=== PATIENT | male | born 1975 | race Caucasian/White ===

== ENCOUNTER 2017-09-15 15:04 | Inpatient (IN) ==
[2017-09-15] MEDS ORDERED: ONDANSETRON 4 MG/2 ML INJECTION IVP PRN (15:11)
[2017-09-15] MEDS ORDERED: VANCOMYCIN - PHARMACY CONSULT MC ONE (15:11)
[2017-09-15] MEDS ORDERED: POLYETHYL GLYCOL 3350 17gm PACKET PO PRN (15:12)
[2017-09-15] MEDS ORDERED: ACETAMINOPHEN 325 MG TABLET PO PRN (15:12)
[2017-09-15] MEDS ORDERED: BISACODYL 10 MG SUPPOSITORY RECTALLY PRN (15:12)
[2017-09-15 16:24] VITALS: BMI 29.5
[2017-09-15] MEDS: NS 1,000 ML IV SCH (16:30)
--- NOTE | 2017-09-15 17:27 | Pharmacy Consult-Antibiotics ---
Pharmacy Consult-Vancomycin - Consult Information Vancomycin consult noted by Dr Hurley. Mr Aragon is a 41yo man, 109.8kg, will cellulitis and abscess. Will give a vancomycin 2000mg loading dose followed by 1500mg vancomycin q8h. Will continue to monitor and adjust doses accordingly. Thank you.
[2017-09-15] MEDS ORDERED: GLUCOSE ORAL GEL 40% 37.5gm PO PRN (17:45)
--- NOTE | 2017-09-15 18:33 | History & Physical Report ---
History of Present Illness Date: 09/15/17 Chief complaint: left foot abscess, diabetic ulceration HPI: Mundo Aragon is a pleasant 41-year-old male patient of Dr. Radha Avila. He reports that in February 2017 he developed an ulcer to his left foot along the 1st metatarsal which progressed into osteomyelitis. He was treated with a 3- month course of vancomycin which was completed at the end of May. Throughout his treatment course, he has been following with Cuca Galdamez APRN, as an outpatient for wound care including weekly dressing changes and wound debridement. On 09/10/17, he was seen in clinic for his weekly dressing change and complained of increasing pain along his left great toe extending into his left foot with swelling and erythema. He reports that the pain and swelling came on suddenly on 09/09/17. He also reported increased fatigue and feeling "sluggish". Evaluation of his ulceration revealed copious serous drainage with a foul odor. He has a known history of diabetes mellitus as well as diabetic peripheral neuropathy. Labs were obtained at that time and revealed elevated lactic acid of 3.7 with elevated sed rate of 48 and glucose of 311. WBC was normal at 9.0. Due to his left foot cellulitis and foot ulceration with uncontrolled diabetes, he was admitted to [facility] in [place]. Daptomycin IV was initiated at the time of admission. Throughout his admission , blood counts remained stable. On 09/14, he was noted to have some hyponatremia (Na 132) and persistently had hyperglycemia with glucose averaging 200. Given his hyperglycemia, he was continued on his home glimepiride 2mg orally BID and metformin 1000mg orally BID with the initiation of Lantus 14 units at night with noted improvement in blood sugars. Initial CRP was elevated at 32 and trended down to 25. Lactate improved from 3.7 on admission to 1.6. Wound cultures from the ulcer were obtained and revealed moderate amount of staph aureus sensitive to daptomycin and large amount of streptococcus agalactiae. Sensitivities revealed resistance to tetracyclines, clindamycin and ciprofloxacin. With the initiation of the daptomycin, he reports increased nausea with frequent vomiting and watery diarrhea. He continues to complain of nausea with occasional vomiting and anorexia. Due to continued pain with minimal clinical improvement, MRI fo the foot was obtained today, 09/15/17, and findings were concerning for persistent cellulitis/myositis as well as developing abscess along the lateral 1st metatarsal-phalangeal region extending along the proximal 1st phalanx. No evidence of osteomyelitis was noted. Due to the development of the abscess, Dr. Hurley was contacted and he was accepted to [facility] for inpatient care for further evaluation, continued IV antibiotic treatment and surgical consultation with ortho for evaluation with anticipated I&D. His length of stay is expected to exceed more than 2 over nights. On exam, he is seen while resting in bed, with his family at the bedside. Extensive review of his prior medical records, labs and imaging in addition to discussion of his care plan with ortho was completed. He is noted to be febrile (T 100.4) and tachycardic (HR 104) on admission. He complains of nausea and overall, not feeling well. He reports that he occasionally checks his blood sugars and they typically run around 300 at home. He is open to learning how to better control his diabetes and receiving more diabetic education. Review of Systems All systems PM: 10-point ROS was reviewed, no additional remarkable complaints except - Constitutional Constitutional: Present: anorexia, chills, fatigue, fever(s), lethargy, malaise , weakness - EENMT Eyes: Absent: change in vision, loss of vision Ears: Absent: ear pain Balance: Absent: falling to one side Nose: Absent: nosebleeds Mouth/Throat: Present: dry mouth. Absent: sore throat, changes in swallowing - Cardiovascular Cardiovascular: Absent: chest pain, palpitations, syncope, dyspnea on exertion, orthopnea Rhythm: Present: regular rhythm Vascular: Absent: pallor of an extermity, pedal edema - Respiratory Respiratory: Absent: cough, dyspnea, hemoptysis, dyspnea on exertion, wheezing - Gastrointestinal Gastrointestinal: Present: change in bowel habits, diarrhea, nausea, vomiting. Absent: abdominal pain, hematemesis, hematochezia, melena - Genitourinary Genitourinary: Absent: dysuria, flank pain, hematuria - Musculoskeletal Musculoskeletal: Present: back pain (chronic), muscle weakness, myalgias. Absent: deformity - Integumentary/Breasts Integumentary: Present: as per HPI. Absent: rash - Neurological Neurological: Present: weakness. Absent: dizziness, focal weakness - Psychiatric Psychiatric: Absent: anxiety, depression - Endocrine Endocrine: Present: flushing. Absent: heat intolerance, palpitations - Hematologic/Lymphatic Hematologic/Lymphatic: Absent: easy bruising - Allergic/Immunologic Allergic/Immunologic: Absent: seasonal rhinorrhea Past Medical History Medical History Updates: Diabetes mellitus, type II - uncontrolled. Diabetic neuropathy. History of left foot osteomyelitis - 02/2017. Surgical History: Tonsillectomy. Adenoidectomy. Family History: Mother - , 62, lung cancer. Father - , 40s, CAD, hypertension, [place]. Patient admits to a strong family history of CAD, diabetes, hypertension, hereditary spherocytosis, thyroid disorders and cancers. 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 Radha Avila. Wound Care - Cuca Galdamez APRN. Medications Home Medications Medication Instructions Recorded Confirmed Type Gabapentin [Neurontin] 600 mg PO BID 09/15/17 09/15/17 History Glimepiride [Amaryl] 2 mg PO BID 09/15/17 09/15/17 History Metformin [Glucophage] 1 tab PO BIDWM 09/15/17 09/15/17 History Allergies Allergy/AdvReac Type Severity Reaction Status Date / Time No Known Allergies Allergy Verified 09/15/17 16:36 Exam Vital Signs: Temperature 100.4 F 09/15/17 16:31 Pulse Rate 102 H 09/15/17 17:54 Respiratory Rate 18 09/15/17 16:31 Blood Pressure 161/95 H 09/15/17 16:31 Pulse Oximetry 95 09/15/17 16:31 Height/Weight/BMI: Height 6 ft 4 in Weight 242 lb 1.081 oz Body Mass Index 29.5 Comments: Resting in bed with family at bedside. Face flushed and febrile. - Constitutional Present: no acute distress, well nourished, well developed, cooperative - Routine HEENT Exam Head: Present: normocephalic, atraumatic Eye: Present: PERRL. Absent: conjunctival icterus ENT: Present: mucous membranes dry, oropharynx clear, dentition normal - Routine Neck Exam Present: supple, full ROM, trachea midline - Routine Chest/Breast/Axilla Exam Chest wall: Absent: tenderness, pacemaker - Routine Respiratory Exam Present: CTA bilaterally. Absent: respiratory distress, wheezes - Routine Cardiovascular Exam Present: S1, S2, no murmur, tachycardia - Routine Abdominal Exam Present: soft, normoactive bowel sounds, non distended, non tender - Routine Extremities Exam Present: no edema, full ROM, pulses intact Comments: Bandage to left foot that is clean, dry and intact - not removed on exam. - Routine Back/Spine/Pelvis Exam Back/Spine: Present: full ROM. Absent: vertebral tenderness - Routine Skin Exam Present: dry, warm Comments: Febrile. - Routine Neurological Exam Present: alert, oriented X3, CN II-XII intact, moving all extremities, hearing grossly intact, normal speech - Routine Psychiatric Exam Present: normal affect, cooperative Results - Labs CBC & Chem 7: 09/15/17 15:10 09/15/17 17:20 Labs: Labs from [facility] on 09/14/17: WBC 8.0 Hgb 16.4 Na 132 K 4.5 BUN 39 SCr 0.8 Glu 203 Wound Culture from [facility]: Staphylococcus aureus - moderate amount SENSITIVE to DAPTOMYCIN Streptococcus agalactiae - large amount Sensitivities: Ceftriaxone S Ciprofloxacin I Clindamycin R Erythromycin R Gentamicin S Levofloxacin S Linezolid S Oxacillin S Penicillin S Rifampin S Tetracycline R Trimethoprim/Sulfa S Vancomycin S Microbiology Results: Microbiology 09/15/17 17:20 Peripheral/Iv Start Blood Culture - Preliminary Culture Initiated - Results Pending 09/15/17 17:20 Peripheral/Iv Start Blood Culture - Preliminary Culture Initiated - Results Pending - Impressions MRI Left Foot - 09/15/17: 1. There is subcutaneous edema both dorsally as well as around the region of the 1st metatarsal-phalangeal joint extending into the great toe and more proximal portions of the region of the 1st metatarsal though within the subcutaneous tissues. There is also some edema of the underlying musculature. There also appears to be a soft tissue defect along the plantar aspect of the medial portion of the 1st proximal phalanx. Packing material appears present. There is enhancement throughout these areas. Findings are most consistent with cellulitis/myositis. 2. There is a focus of fluid seen within the soft tissues lateral to the 1st metatarsal-phalangeal region extending along the proximal 1st phalanx, as above. There is some partial surrounding enhancement and this may represent developing abscess. This measures approximately 2.0x1.8x0.9 cm. This is along the lateral aspect of the 1st metatarsal-phalangeal joint and proximal phalanx. 3. Minimal fluid within the tendon sheath of the flexor hallucis longus distally. Tendons throughout appear within normal limits. There is also some minimal fluid at the 1st and 2nd metatarsophalangeal joints. 4. There does not appear to be significant bone marrow edema or abnormal enhancement of the bone throughout. No evidence to suggest osteomyelitis seen. Left Foot X-Ray - 09/10/17: Normal left foot. Assessment and Plan Assessment and Plan: Assessment Left foot abscess, acute Diabetic foot ulceration with cellulitis, acute Uncontrolled diabetes mellitus Diabetic peripheral neuropathy N/V History of osteomyelitis to left foot - 02/2017 Plan Patient admitted to inpatient status under the care of Dr. Hurley. Patient was hospitalized at [facility] in [place], [place] from 09/10/17-, prior to being transferred to [facility]. MRI on 09/15/17 concerning for abscess to left foot without evidence of osteomyelitis. Treatment with Daptomycin IV from 09/10/17-09/15/17 without improvement. Ortho consulted. Dr. Estes plans to take patient to the OR tomorrow, 09/16/17 for I&D of the abscess. Patient to be NPO after midnight. Monitor closely on telemetry. Prior wound cultures revealed sensitivity to vancomycin. Initiate vancomycin for empiric antimicrobial coverage while awaiting cultures from I&D. Pharmacy to manage. Will consult Dr. Saini (infectious disease) for treatment recommendations and durations. Wound care per Dr. Estes and team. Uncontrolled hyperglycemia with known diabetes. Will continue home metformin and glimepiride. While at [facility], he was started on Levemir 14 units QHS. Sliding scale insulin as indicated. Monitor blood sugars closely. Will hold on Levemir at this time given NPO status. Zofran for nausea/vomiting. Morphine PRN pain. Patient reports frequent diarrhea stools since starting antibiotics. Will obtain stool culture. Initiate probiotics with antibiotics. Hydration with NS 125cc/hr. Recheck labs in AM to monitor blood counts, electrolytes and renal function. Upon discharge, patient's care will be returned to his PCP, Dr. Avila. Prior to discharge, patient is open to additional counseling and education regarding his diabetes and how to achieve better control. Patient requests to be a FULL CODE. DVT Prophylaxis: SCD's GI Prophylaxis: Protonix Resuscitation Status: Full Code - Time spent with patient Time with patient PN: 70 minutes - Physician Narrative Physician: Nelson Hurley MD Narrative: Date: 09/15/17 Time: 2005 Have independently interviewed and examined pt. Chart reviewed. Case discussed with my PA. Care plan developed with my supervision; agree with above. Admitted to [facility] secondary to finding of abscess to foot - being treated for cellulitis of same foot. Increasing temp and HR. Increasing pain. Oral drive decreased-nauseated easily. Notes decrease urine output. Breathing well other than slight cough. No chest pain or pressure. Lungs: clear CV: regular AB; soft nt/nd MSE: awake alert appropriate Plan: Inpatient admission to [facility] for treatment of abscess to foot. Anticipate greater than 2 midnights of care needed. Will consult with Dr Estes for wound debridement and abscess drainage. Antibiotics for coverage. Lab was surprisingly benign for as ill patient sounded from outlying provider-still he is clearly quite ill and needs intensive Wound care and antibiotics to ensure favorable outcome. Hospital Course Summary Disclaimer: The visit summary below is not to be considered part of the above Progress Note. Hospital Course: 09/15/17 Patient admitted to inpatient status under the care of Dr. Hurley. Patient was hospitalized at [facility] in [place], [place] from 09/10/17-, prior to being transferred to [facility]. MRI on 09/15/17 concerning for abscess to left foot without evidence of osteomyelitis. Treatment with Daptomycin IV from 09/10/17-09/15/17 without improvement. Ortho consulted. Dr. Estes plans to take patient to the OR tomorrow, 09/16/17 for I&D of the abscess. Patient to be NPO after midnight. Monitor closely on telemetry. Prior wound cultures revealed sensitivity to vancomycin. Initiate vancomycin for empiric antimicrobial coverage while awaiting cultures from I&D. Pharmacy to manage. Will consult Dr. Saini (infectious disease) for treatment recommendations and durations. Wound care per Dr. Estes and team. Uncontrolled hyperglycemia with known diabetes. Will continue home metformin and glimepiride. While at [facility], he was started on Levemir 14 units QHS. Sliding scale insulin as indicated. Monitor blood sugars closely. Will hold on Levemir at this time given NPO status. Zofran for nausea/vomiting. Morphine PRN pain. Patient reports frequent diarrhea stools since starting antibiotics. Will obtain stool culture. Initiate probiotics with antibiotics. Hydration with NS 125cc/hr. Recheck labs in AM to monitor blood counts, electrolytes and renal function. Upon discharge, patient's care will be returned to his PCP, Dr. Avila. Prior to discharge, patient is open to additional counseling and education regarding his diabetes and how to achieve better control. Patient requests to be a FULL CODE.
[2017-09-15] MEDS ORDERED: PANTOPRAZOLE 40 MG INJECTION IVP ONE (19:12)
--- NOTE | 2017-09-15 20:38 | Orthopedic Consult Note ---
Orthopedic Consultation HPI - Consultation Info Consult Date: 09/15/17 Attending Physician: Nelson Hurley MD Consult Reason: other (left foot diabetic ulcer) - History of Present Illness Patient reports difficult to heal left diabetic foot ulcer that has been present for the past 7 months. Approximately four months ago he reports developing osteomyelitis in his left great toe, he underwent 3 months of antibiotics and states his ulcer was nearly healed a month ago. Over the last two weeks it started worsening again. He was at [facility] wound clinic on for follow up debridement and dressing changes when he was noted to have increased drainage and foul odor from wound. Wound cultures were obtained revealed staph aureus and streptococcus agalactiae. With sensitivity to Daptomycin. On Thursday (09/11), patient developed nausea, vomiting, and diarrhea. Progressing into fevers, chills, body aches today. He was febrile and tachycardic on admission to [facility]. MRI was obtained of his left foot today which showed concerns for developing abscess of left lateral 1st phalanx, and cellulitis. No evidence of osteomyelitis. WBC remained stable throughout stay. Today WBC 10.7. Dr. Hurley was notified and patient was admitted inpatient. Patient does have Diabetes mellitus and peripheral neuropathy. He is on Metformin and glimepride. He was started on Lantus as well at [facility] due to hyperglycemia. Ortho consulted for evaluation of diabetic foot ulcer. Review of Systems - Constitutional Constitutional: Present: anorexia, chills, fatigue, fever(s), malaise, dizziness - Cardiovascular Cardiovascular: Absent: chest pain, palpitations - Respiratory Respiratory: Absent: cough, wheezing - Gastrointestinal Gastrointestinal: Present: diarrhea, nausea, vomiting - Musculoskeletal Musculoskeletal: Present: as per HPI - Neurological Neurological: Absent: numbness, tingling [facility] Patient Stated Medical History Peripheral Neuropathy Yes Diabetes Mellitus Type 2 Yes Gastroesophageal Reflux Yes Disease Hx Renal Disease No Anesthesia Reactions Yes Medical History Updates: Diabetes mellitus, type II - uncontrolled. Diabetic neuropathy. History of left foot osteomyelitis - 02/2017. Surgical History: Tonsillectomy. Adenoidectomy. 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) Does patient use chewing tobacco?: No Current residence: Apartment/Private Home Medications Home Medications Medication Instructions Recorded Confirmed Type Gabapentin [Neurontin] 600 mg PO BID 09/15/17 09/15/17 History Glimepiride [Amaryl] 2 mg PO BID 09/15/17 09/15/17 History Metformin [Glucophage] 1 tab PO BIDWM 09/15/17 09/15/17 History Allergies Allergy/AdvReac Type Severity Reaction Status Date / Time No Known Allergies Allergy Verified 09/15/17 16:36 Exam - Constitutional Vital Signs: Temperature 100.4 F 09/15/17 16:31 Pulse Rate 99 09/15/17 19:00 Respiratory Rate 18 09/15/17 19:05 Blood Pressure 161/95 H 09/15/17 16:31 Pulse Oximetry 94 09/15/17 19:05 General: cooperative, well developed Nutritional Appearance: well nourished Orientation: alert, oriented x3 - LLE General: edema (left foot) Skin: erythema (Erythema to left dorsal foot and plantar aspect of 1st phalanx, tender to palpation, slight decrease in sensation to touch. Diabetic ulcer dorsal aspect of 1st phalanx with packing. No drainge on dressing ) Neurological: decreased sensation to light touch Vascular: dorsalis pedis pulse within normal limits - Respiratory Respiratory Exam: non-labored - Cardiac Cardiovascular exam: pedal pulses intact - Wound Left Dorsal Foot Type of Wound/Ulcer: Diabetic Ulcer - Labs Result Diagrams: 09/15/17 15:10 09/15/17 17:20 Abnormal lab results 09/15/17 09/15/17 Range/Units 15:10 17:20 Neut % (Auto) 68.0 H (33-66) % Lymph % (Auto) 18.5 L (23-45) % [place] % (Auto) 12.5 H (0-9.0) % [place] # (Auto) 1.3 H (0-0.8) T/MM3 Abs Immat Gran (auto) 0.04 H (0.00-0.03) T/MM3 Chloride 97 L (98-107) MEQ/L Creatinine 0.6 L (0.8-1.5) mg/dL BUN/Creatinine Ratio 27 H (6-26) RATIO Glucose 207 H (75-110) MG/DL C-Reactive Protein 59.6 H (0-9) mg/L Total Protein 8.3 H (6.3-8.2) g/dL Globulin 3.8 H (2.4-3.6) G/DL H & H 09/15/17 Range/Units 15:10 Hgb 17.3 (13.5-17.5) GM/DL Hct 48.3 (41-53) % Impression and Recommendation (1) Ulcer of left foot due to type 2 diabetes mellitus Current visit: Yes Status: Acute NPO after Midnight, plan I&D of left foot ulcer with possible wound vac placement Will consult wound clinic if wound vac placed Will repeat cultures in OR Dr. Saini (ID) was also consulted for antibiotic management Medical management and VTE prophylaxis per hospitalist Appreciate hospitalist for the consultation Hospital Course Summary Disclaimer: The visit summary below is not to be considered part of the above Progress Note. Hospital Course: 09/15/17 Patient admitted to inpatient status under the care of Dr. Hurley. Patient was hospitalized at [facility] in [place], [place] from 09/10/17-, prior to being transferred to [facility]. MRI on 09/15/17 concerning for abscess to left foot without evidence of osteomyelitis. Treatment with Daptomycin IV from 09/10/17-09/15/17 without improvement. Ortho consulted. Dr. Estes plans to take patient to the OR tomorrow, 09/16/17 for I&D of the abscess. Patient to be NPO after midnight. Monitor closely on telemetry. Prior wound cultures revealed sensitivity to vancomycin. Initiate vancomycin for empiric antimicrobial coverage while awaiting cultures from I&D. Pharmacy to manage. Will consult Dr. Saini (infectious disease) for treatment recommendations and durations. Wound care per Dr. Estes and team. Uncontrolled hyperglycemia with known diabetes. Will continue home metformin and glimepiride. While at [facility], he was started on Levemir 14 units QHS. Sliding scale insulin as indicated. Monitor blood sugars closely. Will hold on Levemir at this time given NPO status. Zofran for nausea/vomiting. Morphine PRN pain. Patient reports frequent diarrhea stools since starting antibiotics. Will obtain stool culture. Initiate probiotics with antibiotics. Hydration with NS 125cc/hr. Recheck labs in AM to monitor blood counts, electrolytes and renal function. Upon discharge, patient's care will be returned to his PCP, Dr. Avila. Prior to discharge, patient is open to additional counseling and education regarding his diabetes and how to achieve better control. Patient requests to be a FULL CODE.
[2017-09-15] MEDS ORDERED: GLIMEPIRIDE 2 MG TABLET PO SCH (21:00)
[2017-09-15] MEDS: GABAPENTIN 600 MG TABLET PO SCH (22:10)
[2017-09-16] MEDS: NS 1,000 ML IV SCH ×6 (00:28→19:30)
[2017-09-16] MEDS: INSULIN ASPART 100unit/ml INJECTION SQ PRN ×3 (06:06→20:30)
[2017-09-16] MEDS ORDERED: METFORMIN 1,000 MG TABLET PO SCH (08:00)
[2017-09-16] MEDS ORDERED: GLIMEPIRIDE 2 MG TABLET PO SCH ×2 (08:00→21:00)
--- NOTE | 2017-09-16 08:19 | XRay Report ---
Indication: Sepsis PROCEDURE: XR chest 1V: Encounter: Initial Comparison: None FINDINGS: The lungs are clear. There is no abnormal airspace opacity, pleural effusion or pneumothorax identified. The heart size, pulmonary vasculature and mediastinum are within normal limits. No significant skeletal abnormality is seen. IMPRESSION: No acute cardiopulmonary abnormality. .
[2017-09-16] MEDS ORDERED: PANTOPRAZOLE 40 MG INJECTION IVP SCH (09:00)
--- NOTE | 2017-09-16 09:05 | Infectious Disease Consult ---
Infectious Disease Consult Date of Consultation: 09/16/17 Requesting Physician: Nelson Hurley Reason for Consultation: antibiotic recs History of Present Illness: Mr. Aragon is a 41 y/o man with a h/o DM and ulcer plantar aspect of L 1st MT head. He reports that he was treated with Vancomycin and then Daptomycin as an outpatient for about 2 months, ending the end of June. He says that the wound was "nearly healed" but "couldn't make any improvements on the depth." It was debrided about 2 weeks ago and after that, he had increasing pain. Last he was noted to have erythema around it with edema and was admitted to the hospital in [place]. He was started on IV antibiotics (Daptomycin) per records. He reports that he starting having N/V/D after he was admitted in [place]. Records indicate that he had hyperglycemia there. Wound cultures from the ulcer were obtained and revealed moderate amount of MSSA and large amount of streptococcus agalactiae. Due to continued pain with minimal clinical improvement, MRI fo the foot was obtained 09/15/17, and findings were concerning for persistent cellulitis/myositis as well as developing abscess along the lateral 1st metatarsal-phalangeal region extending along the proximal 1st phalanx. No evidence of osteomyelitis was noted. He was transferred here for ortho evaluation. I called [place], and blood cultures were drawn on 09/14 which are negative x 12 hours. He is going to surgery today per Dr. Estes for debridement. Medications Home Medications Medication Instructions Recorded Confirmed Type Gabapentin [Neurontin] 600 mg PO BID 09/15/17 09/15/17 History Glimepiride [Amaryl] 2 mg PO BID 09/15/17 09/15/17 History Metformin [Glucophage] 1 tab PO BIDWM 09/15/17 09/15/17 History Allergies Allergy/AdvReac Type Severity Reaction Status Date / Time No Known Allergies Allergy Verified 09/15/17 16:36 [facility] Patient Stated Medical History Peripheral Neuropathy Yes Diabetes Mellitus Type 2 Yes Gastroesophageal Reflux Yes Disease Hx Renal Disease No Anesthesia Reactions Yes Medical History Updates: Diabetes mellitus, type II - uncontrolled. Diabetic neuropathy. History of left foot osteomyelitis - 02/2017. Surgical History: Tonsillectomy. Adenoidectomy. Family History: Mother - , 62, lung cancer. Father - , 40s, CAD, hypertension, NH. Patient admits to a strong family history of CAD, diabetes, hypertension, hereditary spherocytosis, thyroid disorders and cancers. 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) Does patient use chewing tobacco?: No Current residence: Apartment/Private Home Review of Systems All systems PM: 10-point ROS was reviewed, no additional remarkable complaints except - Constitutional Constitutional: Present: chills, fever(s) - EENMT Eyes: Absent: blurry vision - Cardiovascular Cardiovascular: Absent: chest pain - Respiratory Respiratory: Absent: cough, dyspnea - Gastrointestinal Gastrointestinal: Present: diarrhea, nausea, vomiting - Genitourinary Genitourinary: Absent: difficulty urinating, dysuria - Musculoskeletal Musculoskeletal: Present: arthralgias (pain L foot) - Integumentary/Breasts Integumentary: Absent: rash - Neurological Neurological: Absent: headache(s) Exam Vital Signs: Temperature 97.4 F 09/16/17 07:24 Pulse Rate 83 09/16/17 07:24 Respiratory Rate 16 09/16/17 07:24 Blood Pressure 138/79 09/16/17 07:24 Pulse Oximetry 96 09/16/17 07:24 Height/Weight/BMI: Height 1.93 m Weight 110 kg Body Mass Index 29.5 - Constitutional Present: no acute distress, well nourished, well developed - Routine HEENT Exam Head: Present: normocephalic, atraumatic Eye: Present: EOMI, PERRL ENT: Present: mucous membranes moist, oropharynx clear, dentition normal - Routine Neck Exam Present: supple - Routine Respiratory Exam Present: CTA bilaterally - Routine Cardiovascular Exam Present: RRR - Routine Abdominal Exam Present: soft, normoactive bowel sounds, non distended, non tender - Routine Exam Comments: no hollins, no bladder distention - Routine Extremities Exam Present: edema (trace L foot). Absent: cyanosis, clubbing - Routine Skin Exam Absent: rash Comments: wound plantar aspect L 1st MT head that is packed. He has edema and erythema over medial side of L 1st MT head. It looks like there's purulence under the skin here. Mild erythema over dorsal L foot - Routine Neurological Exam Present: alert, oriented X3, CN II-XII intact, normal speech. Absent: motor deficit - Routine Psychiatric Exam Present: normal affect, normal thought process Results - Labs CBC & Chem 7: 09/15/17 15:10 09/16/17 04:27 Microbiology Results: Microbiology 09/15/17 17:20 Peripheral/Iv Start Blood Culture - Preliminary Culture Initiated - Results Pending 09/15/17 17:20 Peripheral/Iv Start Blood Culture - Preliminary Culture Initiated - Results Pending Impression: Diabetic foot infection with abscess, L 1st MTP. Wound culture with MSSA, GBS. Cellulitis L foot Diabetes mellitus, not IR Diabetic peripheral neuropathy N/V and diarrhea, unclear etiology History of osteomyelitis to left foot, treated with IV Vanco, then Daptomycin for 2-3 months Recommendation: Would narrow antibiotics to Ancef 2gm IV q8 hours. Await surgery report. I anticipate that he will need another 6 weeks of IV antibiotics. This could be accomplished with Daptomycin 6mg/kg IV daily or with Ancef 2gm IV q8 hours. I will not be able to return to [facility] until Thursday, but can be reached with questions.
--- NOTE | 2017-09-16 09:15 | Progress Note ---
- Date 09/16/17 Subjective: F/U: left foot abscess and ulceration. Mundo is seen this morning while getting dressed for the day with the aid of his girlfriend. He reports that he didn't sleep very well because of his chronic low back and hip pain as well as the anticipation of the upcoming surgery today. He is scheduled for an I&D of his left foot abscess today with Dr. Estes. He denies any other complaints or concerns. No chest pain, shortness of breath, abdominal pain, nausea, vomiting or dysuria. He remains NPO in anticipation of his surgery but denies much appetite. Urinary output is stable. He was febrile on admission but has since be afebrile. Blood sugar remains elevated this AM at 171. Objective Vital signs: Temperature 97.4 F 09/16/17 07:24 Pulse Rate 83 09/16/17 07:24 Respiratory Rate 16 09/16/17 07:24 Blood Pressure 138/79 09/16/17 07:24 Pulse Oximetry 96 09/16/17 07:24 Height/Weight/BMI: Height 6 ft 4 in Weight 242 lb 8.136 oz Body Mass Index 29.5 Comments: Getting dressed with the aid of his girlfriend. - Constitutional Present: no acute distress, well nourished, well developed, cooperative - Routine HEENT Exam Head: Present: normocephalic, atraumatic Eye: Present: PERRL. Absent: conjunctival icterus ENT: Present: mucous membranes moist, oropharynx clear - Routine Respiratory Exam Present: CTA bilaterally. Absent: respiratory distress, wheezes - Routine Cardiovascular Exam Present: RRR, S1, S2 - Routine Abdominal Exam Present: soft, normoactive bowel sounds, non distended, non tender - Routine Extremities Exam Present: no edema, full ROM, pulses intact - Routine Back/Spine/Pelvis Exam Back/Spine: Present: full ROM. Absent: vertebral tenderness - Routine Musculoskeletal Exam Musculoskeletal: Present: no clubbing or cyanosis, moving extremities well - Routine Skin Exam Present: dry, warm Comments: Afebrile. Bandage to left foot intact - not removed on exam. - Routine Neurological Exam Present: alert, oriented X3, CN II-XII intact, moving all extremities, hearing grossly intact, normal speech - Routine Lymphatic Exam Lymphatic: Absent: lymphedema - Routine Psychiatric Exam Present: normal affect, cooperative Results - Labs CBC & Chem 7: 09/15/17 15:10 09/16/17 04:27 Microbiology Results: Microbiology 09/15/17 17:20 Peripheral/Iv Start Blood Culture - Preliminary Culture Initiated - Results Pending 09/15/17 17:20 Peripheral/Iv Start Blood Culture - Preliminary Culture Initiated - Results Pending Assessment and Plan Assessment and Plan: Assessment Left foot abscess, acute Diabetic foot ulceration with cellulitis, acute Uncontrolled diabetes mellitus Diabetic peripheral neuropathy N/V History of osteomyelitis to left foot - 02/2017 Plan Patient to go to OR today for I&D with possible wound vac placement with Dr. Estes. He remains NPO due to anticipated surgery. Plan to advance diet as tolerated following surgery. He was seen by Dr. Saini this morning - awaiting her recommendations regarding treatment. Will continue vancomycin for empiric treatment. Wound care per Dr. Estes and team. Blood sugars remain elevated. Will continue to monitor closely. Will continue home metformin and glimepiride. While at [facility], he was started on Levemir 14 units QHS. Sliding scale insulin as indicated. Monitor blood sugars closely. Will hold on Levemir at this time given NPO status. Zofran for nausea/vomiting. Morphine PRN pain. Patient reports frequent diarrhea stools since starting antibiotics. Will obtain stool culture. Probiotics started 09/15/17. Continue hydration with NS 125cc/hr. Recheck labs in AM to monitor blood counts, electrolytes and renal function. DVT Prophylaxis: SCD's GI Prophylaxis: Protonix Resuscitation Status: Full Code - Time spent with patient Time with patient PN: 30 minutes - Physician Narrative Physician: Nelson Hurley MD Narrative: Date: 09/16/17 Time: 1830 Have independently interviewed and examined pt. Chart reviewed case discussed with my PA. Care plan developed with my supervision; agree with above. Doing okay this evening post surgery. Pain controlled, feels swelling to left leg decreased. No nausea. Taking foods in slowly this evening so as not to upset stomach. Breathing well. Did have episode of chills this am. Lungs: clear CV: tachy, regular AB: soft nt BS decreased MSE: awake alert appropriate Plan: Continue with IV antibiotics - Dr Saini added cefazolin 2 grams IV q 8 hours to vancomycin. Can decrease IVF to 75cc/hr now that patient post op and nausea decreasing. Control pain. Monitor lab. Hospital Course Summary Disclaimer: The visit summary below is not to be considered part of the above Progress Note. Hospital Course: 09/15/17 Patient admitted to inpatient status under the care of Dr. Hurley. Patient was hospitalized at [facility] in [place], [place] from 09/10/17-, prior to being transferred to [facility] [facility]. MRI on 09/15/17 concerning for abscess to left foot without evidence of osteomyelitis. Treatment with Daptomycin IV from 09/10/17-09/15/17 without improvement. Ortho consulted. Dr. Estes plans to take patient to the OR tomorrow, 09/16/17 for I&D of the abscess. Patient to be NPO after midnight. Monitor closely on telemetry. Prior wound cultures revealed sensitivity to vancomycin. Initiate vancomycin for empiric antimicrobial coverage while awaiting cultures from I&D. Pharmacy to manage. Will consult Dr. Saini (infectious disease) for treatment recommendations and durations. Wound care per Dr. Estes and team. Uncontrolled hyperglycemia with known diabetes. Will continue home metformin and glimepiride. While at [facility], he was started on Levemir 14 units QHS. Sliding scale insulin as indicated. Monitor blood sugars closely. Will hold on Levemir at this time given NPO status. Zofran for nausea/vomiting. Morphine PRN pain. Patient reports frequent diarrhea stools since starting antibiotics. Will obtain stool culture. Initiate probiotics with antibiotics. Hydration with NS 125cc/hr. Recheck labs in AM to monitor blood counts, electrolytes and renal function. Upon discharge, patient's care will be returned to his PCP, Dr. Avila. Prior to discharge, patient is open to additional counseling and education regarding his diabetes and how to achieve better control. Patient requests to be a FULL CODE. 09/16/17 Op DAY: Incision and drainage diabetic foot ulcer (Left) Patient to go to OR today for I&D with possible wound vac placement with Dr. Estes. Tolerated surgery well - wound vac placed. He was seen by Dr. Saini this morning - awaiting her recommendations regarding treatment. Will continue vancomycin for empiric treatment. Dr Saini added cefazolin 2 grams IV q 8 hours. Blood sugars remain elevated. Will continue home metformin and glimepiride. While at [facility], he was started on Levemir 14 units QHS. Will star Levemir at this evening. Zofran for nausea/vomiting. Morphine PRN pain. Patient reports frequent diarrhea stools since starting antibiotics. Will obtain stool culture. Probiotics started 09/15/17. Continue hydration with NS 125cc/hr pre op. Decreased to 75cc/hr after surgery. Recheck labs in AM to monitor blood counts, electrolytes and renal function.
[2017-09-16] MEDS ORDERED: LIDOCAINE 1% (10mg/ml) 30ml SDV INJ ONE (10:24)
[2017-09-16] MEDS ORDERED: BUPIVACAINE 0.25% (2.5mg/ml) PF 30ml INJECTION ONE (10:24)
[2017-09-16] MEDS: LACTOBACILLUS (15B cfu) CAPSULE PO SCH ×3 (10:36→16:52)
[2017-09-16] MEDS: GABAPENTIN 600 MG TABLET PO SCH ×2 (10:36→20:30)
[2017-09-16] MEDS: CEFAZOLIN 2 G in NS 100 ML IV SCH ×2 (10:50→18:02)
[2017-09-16] MEDS ORDERED: BUPIV 0.25% 30ml/LIDO 1% 30ml MIXTURE ID ONE (11:32)
[2017-09-16] MEDS ORDERED: PROPOFOL 500 MG/50 ML VIAL ONE ×2 (11:59→12:35)
[2017-09-16] MEDS ORDERED: FentaNYL 250 MCG/5 ML INJECTION ONE (11:59)
[2017-09-16] MEDS ORDERED: MIDAZOLAM 2mg/2ml INJECTION ONE (11:59)
[2017-09-16] MEDS ORDERED: PROPOFOL 20 ML ONE (11:59)
[2017-09-16] MEDS ORDERED: KETAMINE 500 MG/10 ML INJECTION ONE (12:03)
--- NOTE | 2017-09-16 13:24 | Anesthesia Preoperative Report ---
Anesthesia Preoperative Record - Date and Time Date: 09/16/17 Preoperative Diagnosis: Cellulitis and abscess of foot Proposed Procedure: Incision and drainage diabetic foot ulcer L NPO Since Date: 09/16/17 NPO Since Time: 00:00 Allergies/Adverse Reactions: Allergies Allergy/AdvReac Type Severity Reaction Status Date / Time No Known Allergies Allergy Verified 09/15/17 16:36 - Vital Signs Vital Signs: Temperature 97.8 F 09/16/17 10:39 Pulse Rate 75 09/16/17 10:39 Respiratory Rate 20 09/16/17 10:39 Blood Pressure 140/68 H 09/16/17 10:39 Pulse Oximetry 98 09/16/17 10:39 Height and Weight: Height 1.93 m Weight 110 kg Body Mass Index 29.5 - Medications Inpatient Medications: Current Medications Acetaminophen (Tylenol) 650 mg PO Q5H PRN PRN Reason: Discomfort Bisacodyl (Dulcolax) 10 mg RECTALLY DAILY PRN PRN Reason: Constipation Gabapentin (Neurontin) 600 mg PO BID [facility] Last Admin: 09/16/17 10:36 Dose: Not Given Glimepiride (Amaryl) 2 mg PO BIDBS [facility] Last Admin: 09/16/17 10:35 Dose: Not Given Glucose (Glutose 15) 37.5 gm PO PRN PRN PRN Reason: Hypoglycemia Sodium Chloride (Normal Saline) 1,000 mls @ 125 mls/hr IV .Q8H [facility] Last Infusion: 09/16/17 10:37 Dose: 0 mls/hr Cefazolin Sodium 2 g/ Sodium (Chloride) 100 mls @ 200 mls/hr IV Q8H [facility] Last Admin: 09/16/17 10:50 Dose: 200 mls/hr Insulin Aspart (Novolog) 1 - 5 unit SQ SS PRN; Protocol PRN Reason: Hyperglycemia Last Admin: 09/16/17 06:06 Dose: 2 unit Lactobacillus Acidophilus (Culturelle) 2 cap PO TIDWM [facility] Last Admin: 09/16/17 10:36 Dose: Not Given Magnesium Hydroxide (Mom) 30 ml PO DAILY PRN PRN Reason: Constipation Metformin HCl (Glucophage) 1,000 mg PO BIDWM [facility] Last Admin: 09/16/17 10:36 Dose: Not Given Morphine Sulfate (Morphine Sulfate Inj) 4 mg IVP Q3H PRN PRN Reason: Pain Ondansetron HCl (Zofran) 4 mg IVP Q6H PRN PRN Reason: Nausea Pantoprazole Sodium (Protonix Iv) 40 mg IVP DAILY [facility] Last Admin: 09/16/17 09:31 Dose: 40 mg Polyethylene Glycol (Miralax) 17 gm PO DAILY PRN PRN Reason: Constipation Home Medications: Home Medications Medication Instructions Recorded Confirmed Type Gabapentin [Neurontin] 600 mg PO BID 09/15/17 09/15/17 History Glimepiride [Amaryl] 2 mg PO BID 09/15/17 09/15/17 History Metformin [Glucophage] 1 tab PO BIDWM 09/15/17 09/15/17 History Is Patient on Beta Tristian?: No - Medical History Respiratory: Reports: Sleep Apnea Gastrointestional: Reports: Gastroesophageal Reflux Disease Neuro/Musculoskeletal: Reports: Back Problems Renal/Endocrine: Reports: Diabetes Mellitus Type 2 Other History: Reports: Anesthesia Reactions (violent emergence) - Surgical History HEENT Surgeries: Reports: Tonsillectomy Cardiac Surgeries/Treatments: DENIES: Pacemaker Reproductive Surgery/Treatment: DENIES: Mastectomy Anesthesia Reactions: Other (confusion delirium) Hx Family Anesthesia Reaction: No History of Motion Sickness: No - Social History Smoking Status: Never smoker Hx Chewing Tobacco Use: No Substance Use Type: does not use Alcohol Intake Frequency: does not drink - Pertinent Findings Laboratory: CBC and BMP 09/15/17 15:10 09/16/17 04:27 BMP 09/15/17 09/16/17 17:20 04:27 Sodium 137 139 Potassium 4.4 3.9 Chloride 97 L 101 Carbon Dioxide 25 25 BUN 16.0 11.0 Creatinine 0.6 L 0.6 L Glucose 207 H 171 H Calcium 9.4 8.4 D Liver Function 09/15/17 Range/Units 17:20 Total Bilirubin 1.00 (0.20-1.30) MG/DL AST 24 (17-59) U/L ALT 21 (1-50) U/L Alkaline Phosphatase 89 (38-126) U/L Albumin 4.5 (3.5-5.0) g/dL Urine 09/15/17 Range/Units 20:46 Urine Color Yellow (YELLOW) Urine Clarity Clear Urine pH 6.0 (5.0-8.0) Ur Specific Bentley >=1.030 H (1.015-1.025) Urine Protein 2+ A (NEGATIVE) Urine Glucose (UA) 2+ A (NEGATIVE) EKG: Sinus Rhythm - Physical Exam Respiratory Exam: Present: lungs clear Cardiovascular Exam: Present: regular rate and rhythm - Airway Assessment TMD: 2 Fingerbreadths Neck Extension: good Overall Assessment: no airway concerns - ASA ASA Score: 3 - Plan Anesthesia: General TIVA - Discussion Discussion: Discussed risks/options/alternatives of anesthesia and questions answered. Patient consents. Nursing pain assessment noted. Present for Discussion: spouse Attestation Statement: Prior to the delivery of any anesthetic medication, I examined the patient, developed the plan, obtained the patient's consent and discussed the risk and benefits of the procedure with the patient/guardian.
--- NOTE | 2017-09-16 13:24 | Anesthesia Postoperative Note ---
- Date and Time Date: 09/16/17 Time: 13:24 - Status Patient Participated in Evaluation: Patient Participated in Person Vital Signs: Temperature 98.6 F 09/16/17 12:53 Pulse Rate 69 09/16/17 13:20 Respiratory Rate 16 09/16/17 13:20 Blood Pressure 141/77 H 09/16/17 13:20 Pulse Oximetry 95 09/16/17 13:20 Respiratory Function: Airway Patent, Regular Respirations Cardiovascular Function: Regular Pulse Mental Status: Alert and Oriented Pain Intensity: 0 Hydration: IV Infusing Complications During Recover: None Apparent - Follow-Up Instructions Instructions: Per Surgeon
[2017-09-16] MEDS: MORPHINE SULFATE 4mg INJECTION IVP PRN ×2 (17:47→20:45)
[2017-09-16] MEDS: METFORMIN 1,000 MG TABLET PO SCH (20:30)
[2017-09-16] MEDS ORDERED: INSULIN GLARGINE 100unit/ml INJECTION SQ SCH (21:00)
[2017-09-16] MEDS: Oxycodone/Acetaminophen 5/325 1 TAB PO PRN (22:22)
[2017-09-17] MEDS: CEFAZOLIN 2 G in NS 100 ML IV SCH ×3 (01:04→19:49)
[2017-09-17] MEDS: INSULIN ASPART 100unit/ml INJECTION SQ PRN ×4 (05:12→22:42)
[2017-09-17] MEDS: PANTOPRAZOLE 40 MG TABLET PO SCH ×2 (05:12→05:37)
--- NOTE | 2017-09-17 07:58 | Operative Note ---
DATE 09/16/2017 PREOPERATIVE DIAGNOSIS Left foot diabetic foot ulcers with abscess. POSTOPERATIVE DIAGNOSIS Left foot diabetic foot ulcers with abscess. PROCEDURE Left foot surgical debridement, evacuation of abscess and placement of wound vac. SURGEON Ezekiel Estes MD ANESTHESIA General. COMPLICATIONS None. EBL AND FLUIDS Please see Anesthetic Record. DESCRIPTION OF PROCEDURE Mr. Aragon and his left foot were identified and marked in the preoperative holding area. He was brought back to the operating suite and placed supine on the operating table. He was placed under general anesthesia. The left lower extremity was prepped and draped with Betadine scrub. Time-out was performed. Tourniquet was not used during the surgery. I began by measuring his plantar diabetic foot ulcer which measured 1.1 x 1.0 x 1.1 deep. It had surrounding callus around the skin. Within the wound itself there was active drainage of pustulous type material. He had a second area of concern which was not open, but there was discoloration over the anteromedial aspect over the metatarsal head with fluctuance. I removed skin over this fluctuance and there was a large ulceration measuring 0.7 x 0.8 with necrotic subcutaneous tissue 100% within the base. I continued to debride skin from between the two ulcerations and then sharpy debrided all of the necrotic tissue from the anterior ulceration. There was abundant pustulous material within the subcutaneous tissue and after complete debridement it tunneled 360 degrees from the ulceration itself over 1 cm. Sharp dissection was then proceeded on the plantar wound. Measurements after complete debridement sharply were 1.5 cm x 1.5 cm x 1.3 cm deep. According to the MRI he had an abscess lateral to the metatarsal, so with a pair of Mallory's I bluntly dissected to this area to ensure that we evacuated this abscess. I then proceeded to thoroughly irrigate both ulcerations with normal saline using a total of 3 liters. I did this with cysto tubing. After this both wounds again were evaluated to ensure no necrotic remained, which it did not. There was no exposed tendon in either wound. I then placed a wound vac to both wounds set to 125 mmHg continuous suction. They did achieve a good seal. The drapes were then removed. He was allowed to awaken from general anesthesia and taken to the recovery room under the care of Anesthesia. He tolerated the procedure well. There were no complications. [facility]ADA
--- NOTE | 2017-09-17 09:10 | Progress Note ---
- Date 09/17/17 Subjective: F/U: left foot abscess/ulceration, s/p I&D with wound vac placement, POD #1. Mundo is seen first thing this morning while resting in bed. He complains of some pain to his foot as well as his chronic back pain. He reports that he needed morphine and percocet during the night to help with the pain. He denies any fevers, chills, chest pain, shortness of breath, abdominal pain, nausea, vomiting or dysuria. His appetite is stable and he tolerated a regular diet last night. No bowel movement but he is passing gas. Labs remain unremarkable without leukocytosis. Wound vac was placed to left foot following 1&D. Objective Vital signs: Temperature 97.3 F 09/17/17 04:00 Pulse Rate 71 09/17/17 08:34 Respiratory Rate 16 09/17/17 08:34 Blood Pressure 136/83 09/17/17 08:34 Pulse Oximetry 99 09/17/17 08:34 Height/Weight/BMI: Height 6 ft 4 in Weight 242 lb 8.136 oz Body Mass Index 29.5 Comments: Resting in bed; wound vac actively draining. - Constitutional Present: no acute distress, well nourished, well developed, cooperative - Routine HEENT Exam Head: Present: normocephalic, atraumatic Eye: Present: PERRL. Absent: conjunctival icterus ENT: Present: mucous membranes moist, oropharynx clear - Routine Respiratory Exam Present: CTA bilaterally. Absent: respiratory distress, wheezes - Routine Cardiovascular Exam Present: RRR, S1, S2 - Routine Abdominal Exam Present: soft, normoactive bowel sounds, non tender - Routine Extremities Exam Present: no edema, full ROM, pulses intact Comments: Wound vac present and intact to left foot, actively suctioning. - Routine Back/Spine/Pelvis Exam Back/Spine: Present: full ROM. Absent: vertebral tenderness - Routine Musculoskeletal Exam Musculoskeletal: Present: no clubbing or cyanosis, moving extremities well - Routine Skin Exam Present: dry, warm Comments: Afebrile. - Routine Neurological Exam Present: alert, oriented X3, moving all extremities, hearing grossly intact, normal speech - Routine Lymphatic Exam Lymphatic: Absent: lymphedema - Routine Psychiatric Exam Present: normal affect, cooperative Results - Labs CBC & Chem 7: 09/17/17 04:17 09/17/17 04:17 Microbiology Results: Microbiology 09/16/17 12:19 Foot, Right Gram Stain - Final 09/16/17 12:19 Foot, Right Surgical Culture - Preliminary Proteus mirabilis 09/15/17 17:20 Peripheral/Iv Start Blood Culture - Preliminary No Growth After 1 Day 09/15/17 17:20 Peripheral/Iv Start Blood Culture - Preliminary No Growth After 1 Day Assessment and Plan Assessment and Plan: Assessment Left foot abscess, acute Diabetic foot ulceration with cellulitis, acute Uncontrolled diabetes mellitus Diabetic peripheral neuropathy N/V History of osteomyelitis to left foot - 02/2017 Plan 09/17/17: POD #1 I&D performed with wound vac placement on 09/16/[address] Estes. Some increased pain following surgery. Continue morphine and Percocet as needed. History of chronic pain which may make pain control difficult. Diet advanced last night and tolerating well. Given good oral intake, will discontinue IV fluids. Culture revealing Proteus mirabilis with sensitivities pending. Dr. Saini recommended narrowing antibiotics to Cefazolin 2g IV Q8H and anticipates another 6 weeks of IV antibiotics will be needed. Recommends IV daptomycin 6mg/kg IV daily or continue with Ancef 2gm IV Q8H. Given expected prolonged treatment, will have PICC line placed. Continue wound care per Dr. Estes and team. Blood sugars remain elevated. Will add Novolog 2 units TID with meals and increase evening Lantus to 15 units (previously 14) units, based on previous sliding scale needs. Will continue to monitor closely. Will continue home metformin and glimepiride. Sliding scale insulin as indicated. Prior diarrhea resolved. Monitor closely for constipation given opioid pain control. Continue probiotics started 09/15/17 and bowel motivation. Recheck labs in AM to monitor blood counts, electrolytes and renal function. DVT Prophylaxis: SCD's GI Prophylaxis: Protonix Resuscitation Status: Full Code - Time spent with patient Time with patient PN: 30 minutes - Physician Narrative Physician: Nelson Hurley MD Narrative: Date: 09/17/17 Time: 1800 Have independently interviewed and examined pt. Chart reviewed. Case discussed with my PA. Care plan developed with my supervision; agree with above. Doing well this evening. Pain controlled. No f/c. Nausea resolved-eating well. No ab pain or cramping. Not had stool, but not feeling need for bowel movement. Breathing well. Lungs: clear bilaterally CV: regular Tele: NSE AB: soft nt BS decreased EXT: wound vac in place MSE: awake alert appropriate Plan: Continue with cefazolin as per ID, continue wound vac. Will d/c tele as NSR. CM working of outpatient IV antibiotics and wound vac. Monitor lab. Hospital Course Summary Disclaimer: The visit summary below is not to be considered part of the above Progress Note. Hospital Course: 09/15/17 Patient admitted to inpatient status under the care of Dr. Hurley. Patient was hospitalized at [facility] in [place], [place] from 09/10/17-, prior to being transferred to [facility]. MRI on 09/15/17 concerning for abscess to left foot without evidence of osteomyelitis. Treatment with Daptomycin IV from 09/10/17-09/15/17 without improvement. Ortho consulted. Dr. Estes plans to take patient to the OR tomorrow, 09/16/17 for I&D of the abscess. Patient to be NPO after midnight. Monitor closely on telemetry. Prior wound cultures revealed sensitivity to vancomycin. Initiate vancomycin for empiric antimicrobial coverage while awaiting cultures from I&D. Pharmacy to manage. Will consult Dr. Saini (infectious disease) for treatment recommendations and durations. Wound care per Dr. Estes and team. Uncontrolled hyperglycemia with known diabetes. Will continue home metformin and glimepiride. While at [facility], he was started on Levemir 14 units QHS. Sliding scale insulin as indicated. Monitor blood sugars closely. Will hold on Levemir at this time given NPO status. Zofran for nausea/vomiting. Morphine PRN pain. Patient reports frequent diarrhea stools since starting antibiotics. Will obtain stool culture. Initiate probiotics with antibiotics. Hydration with NS 125cc/hr. Upon discharge, patient's care will be returned to his PCP, Dr. Avila. Prior to discharge, patient is open to additional counseling and education regarding his diabetes and how to achieve better control. Patient requests to be a FULL CODE. 09/16/17 Op DAY: Incision and drainage diabetic foot ulcer (Left) Patient to go to OR today for I&D with possible wound vac placement with Dr. Estes. Tolerated surgery well - wound vac placed. He was seen by Dr. Saini this morning - awaiting her recommendations regarding treatment. Will continue vancomycin for empiric treatment. Dr Saini added cefazolin 2 grams IV q 8 hours. Blood sugars remain elevated. Will continue home metformin and glimepiride. While at [facility], he was started on Levemir 14 units QHS. Will star Levemir at this evening. Zofran for nausea/vomiting. Morphine PRN pain. Patient reports frequent diarrhea stools since starting antibiotics. Will obtain stool culture. Probiotics started 09/15/17. Continue hydration with NS 125cc/hr pre op. Decreased to 75cc/hr after surgery. 09/17/17 POD #1 I&D performed with wound vac placement on 09/16/[address] Estes. Some increased pain following surgery. Continue morphine and Percocet as needed. History of chronic pain which may make pain control difficult. Diet advanced last night and tolerating well. Given good oral intake, will discontinue IV fluids. Culture revealing Proteus mirabilis with sensitivities pending. Dr. Saini recommended narrowing antibiotics to Cefazolin 2g IV Q8H and anticipates another 6 weeks of IV antibiotics will be needed. Recommends IV daptomycin 6mg/kg IV daily or continue with Ancef 2gm IV Q8H. Given expected prolonged treatment, will have PICC line placed. Continue wound care per Dr. Estes and team. Blood sugars remain elevated. Will add Novolog 2 units TID with meals and increase evening Lantus to 15 units (previously 14) units, based on previous sliding scale needs. Will continue to monitor closely. Will continue home metformin and glimepiride. Prior diarrhea resolved. Monitor closely for constipation given opioid pain control. Continue probiotics started 09/15/17 and bowel motivation.
[2017-09-17] MEDS: GLIMEPIRIDE 2 MG TABLET PO SCH ×2 (09:55→19:03)
[2017-09-17] MEDS: GABAPENTIN 600 MG TABLET PO SCH ×2 (09:55→22:41)
[2017-09-17] MEDS: SENNA + DOCUSATE TABLET PO SCH (09:55)
[2017-09-17] MEDS: LACTOBACILLUS (15B cfu) CAPSULE PO SCH ×3 (09:55→19:02)
[2017-09-17] MEDS: METFORMIN 1,000 MG TABLET PO SCH ×2 (09:56→19:03)
[2017-09-17] MEDS: POLYETHYL GLYCOL 3350 17gm PACKET PO SCH (09:56)
[2017-09-17] MEDS: NS 1,000 ML IV SCH (14:10)
[2017-09-17] MEDS: INSULIN ASPART 100unit/ml INJECTION SQ SCH ×2 (14:11→19:01)
--- NOTE | 2017-09-17 14:36 | Orthopedic Progress Note ---
Date: Date: 09/17/17 Time: 1433 Subjective/Severity of Illness: Pt is POD #1 from left foot surgical debridement, evacuation of abscess and placement of wound vac by Dr Estes on 09/16/17. He is doing well and reports his pain to be controlled. He is able to move his toes easier and doesn't feel as much pressure across the ball of his foot. The wound vac has been functioning without leaking. No other concerns reported. Orthopedic Exam Vital signs: Temperature 97.3 F 09/17/17 04:00 Pulse Rate 86 09/17/17 11:42 Respiratory Rate 18 09/17/17 11:42 Blood Pressure 135/81 09/17/17 11:42 Pulse Oximetry 97 09/17/17 11:42 - Constitutional General Appearance: Present: alert, cooperative, no acute distress - Respiratory Exam Present: non-labored - Cardiovascular Exam Present: pedal pulses intact - Extremities Exam Present: no edema, pulses intact. Absent: calf tenderness - Dressing Dressing: other (Wound vac functioning well with minimal output.) - Neurological Exam Present: no deficits - Psychiatric Exam Present: alert, normal affect - Labs Result Diagrams: 09/17/17 04:17 09/17/17 04:17 Abnormal lab results 09/17/17 09/17/17 Range/Units 04:17 04:17 Moody % (Auto) 15.0 H (0-9.0) % Moody # (Auto) 1.3 H (0-0.8) T/MM3 Creatinine 0.7 L (0.8-1.5) mg/dL Glucose 162 H (75-110) MG/DL Calcium 8.3 L (8.4-10.2) MG/DL H & H 09/15/17 09/17/17 Range/Units 15:10 04:17 Hgb 17.3 14.7 D (13.5-17.5) GM/DL Hct 48.3 41.9 D (41-53) % Orthopedic Assessment and Plan (1) Ulcer of left foot due to type 2 diabetes mellitus Status: Acute Assessment and Plan: Continue wound vac. Will change Thursday or Thursday and check his wound. PICC line to be placed today. Dr Saini note reviewed regarding antibiotic recommendations and length of tx. Pt may be WBAT on the heel while wearing a post op shoe. Hospital Course Summary Disclaimer: The visit summary below is not to be considered part of the above Progress Note. Hospital Course: 09/15/17 Patient admitted to inpatient status under the care of Dr. Hurley. Patient was hospitalized at [facility] in [place], [place] from 09/10/17-, prior to being [place] [facility] MRI on 09/15/17 concerning for abscess to left foot without evidence of osteomyelitis. Treatment with Daptomycin IV from 09/10/17-09/15/17 without improvement. Ortho consulted. Dr. Estes plans to take patient to the OR tomorrow, 09/16/17 for I&D of the abscess. Patient to be NPO after midnight. Monitor closely on telemetry. Prior wound cultures revealed sensitivity to vancomycin. Initiate vancomycin for empiric antimicrobial coverage while awaiting cultures from I&D. Pharmacy to manage. Will consult Dr. Saini (infectious disease) for treatment recommendations and durations. Wound care per Dr. Estes and team. Uncontrolled hyperglycemia with known diabetes. Will continue home metformin and glimepiride. While at [facility], he was started on Levemir 14 units QHS. Sliding scale insulin as indicated. Monitor blood sugars closely. Will hold on Levemir at this time given NPO status. Zofran for nausea/vomiting. Morphine PRN pain. Patient reports frequent diarrhea stools since starting antibiotics. Will obtain stool culture. Initiate probiotics with antibiotics. Hydration with NS 125cc/hr. Recheck labs in AM to monitor blood counts, electrolytes and renal function. Upon discharge, patient's care will be returned to his PCP, Dr. Avila. Prior to discharge, patient is open to additional counseling and education regarding his diabetes and how to achieve better control. Patient requests to be a FULL CODE. 09/16/17 Op DAY: Incision and drainage diabetic foot ulcer (Left) Patient to go to OR today for I&D with possible wound vac placement with Dr. Estes. Tolerated surgery well - wound vac placed. He was seen by Dr. Saini this morning - awaiting her recommendations regarding treatment. Will continue vancomycin for empiric treatment. Dr Saini added cefazolin 2 grams IV q 8 hours. Blood sugars remain elevated. Will continue home metformin and glimepiride. While at [facility], he was started on Levemir 14 units QHS. Will star Levemir at this evening. Zofran for nausea/vomiting. Morphine PRN pain. Patient reports frequent diarrhea stools since starting antibiotics. Will obtain stool culture. Probiotics started 09/15/17. Continue hydration with NS 125cc/hr pre op. Decreased to 75cc/hr after surgery. Recheck labs in AM to monitor blood counts, electrolytes and renal function. Plan 09/17/17: POD #1 I&D performed with wound vac placement on 09/16/[address] Estes. Some increased pain following surgery. Continue morphine and Percocet as needed. History of chronic pain which may make pain control difficult. Diet advanced last night and tolerating well. Given good oral intake, will discontinue IV fluids. Culture revealing Proteus mirabilis with sensitivities pending. Dr. Saini recommended narrowing antibiotics to Cefazolin 2g IV Q8H and anticipates another 6 weeks of IV antibiotics will be needed. Recommends IV daptomycin 6mg/kg IV daily or continue with Ancef 2gm IV Q8H. Given expected prolonged treatment, will have PICC line placed. Continue wound care per Dr. Estes and team. Blood sugars remain elevated. Will add Novolog 2 units TID with meals and increase evening Lantus to 15 units (previously 14) units, based on previous sliding scale needs. Will continue to monitor closely. Will continue home metformin and glimepiride. Sliding scale insulin as indicated. Prior diarrhea resolved. Monitor closely for constipation given opioid pain control. Continue probiotics started 09/15/17 and bowel motivation. Recheck labs in AM to monitor blood counts, electrolytes and renal function.
[2017-09-17] MEDS: Oxycodone/Acetaminophen 5/325 1 TAB PO PRN (19:02)
[2017-09-17] MEDS ORDERED: INSULIN GLARGINE 100unit/ml INJECTION SQ SCH (21:00)
[2017-09-18] MEDS: Oxycodone/Acetaminophen 5/325 1 TAB PO PRN ×2 (01:02→11:13)
[2017-09-18] MEDS ORDERED: SALINE FLUSH 10ml SYRINGE IV PRN (02:51)
[2017-09-18] MEDS ORDERED: NS FLUSH BAG 500ml IV PRN (02:51)
[2017-09-18] MEDS: CEFAZOLIN 2 G in NS 100 ML IV SCH ×2 (02:59→10:20)
[2017-09-18 03:48] VITALS: RESP 16
[2017-09-18] MEDS: PANTOPRAZOLE 40 MG TABLET PO SCH (06:39)
[2017-09-18] MEDS: INSULIN ASPART 100unit/ml INJECTION SQ PRN ×2 (06:39→11:12)
[2017-09-18 08:28] VITALS: O2SAT 98
--- NOTE | 2017-09-18 09:08 | Progress Note ---
- Date 09/18/17 Subjective: F/U: left foot abscess/ulceration, s/p I&D with wound vac placement, POD #2. Mundo is seen first thing this morning. He reports that he didn't sleep very well because nursing kept waking him up. He reports that his pain is well controlled and denies any other complains or concerns. No fevers, chest pain, shortness of breath, nausea, vomiting or abdominal pain. Appetite is good and urinary output is stable. Labs remain unremarkable. Blood sugars throughout the day remain elevated. Insulin 2units TID initiated 09/17/17 with minimal improvement. Plan to changed the wound vac either today or tomorrow per Dr. Estes. Anticipate discharge home in the near future. Objective Vital signs: Temperature 96.1 F L 09/18/17 08:27 Pulse Rate 68 09/18/17 08:27 Respiratory Rate 16 09/18/17 08:27 Blood Pressure 145/78 H 09/18/17 08:27 Pulse Oximetry 98 09/18/17 08:27 Height/Weight/BMI: Height 6 ft 4 in Weight 244 lb 7.882 oz Body Mass Index 29.5 Comments: resting in bed. - Constitutional Present: no acute distress, well nourished, well developed, cooperative - Routine HEENT Exam Head: Present: normocephalic, atraumatic Eye: Present: PERRL. Absent: conjunctival icterus ENT: Present: mucous membranes moist, oropharynx clear - Routine Respiratory Exam Present: CTA bilaterally. Absent: respiratory distress, wheezes - Routine Cardiovascular Exam Present: RRR, S1, S2 - Routine Abdominal Exam Present: soft, normoactive bowel sounds, non distended - Routine Extremities Exam Present: no edema, full ROM, pulses intact Comments: bandage to left foot with wound vac in place. - Routine Back/Spine/Pelvis Exam Back/Spine: Present: full ROM. Absent: vertebral tenderness - Routine Musculoskeletal Exam Musculoskeletal: Present: no clubbing or cyanosis, moving extremities well - Routine Skin Exam Present: intact, dry, warm Comments: Afebrile. - Routine Neurological Exam Present: alert, oriented X3, CN II-XII intact, moving all extremities, hearing grossly intact, normal speech - Routine Lymphatic Exam Lymphatic: Absent: lymphedema - Routine Psychiatric Exam Present: normal affect, cooperative Results - Labs CBC & Chem 7: 09/18/17 04:23 09/18/17 04:23 Microbiology Results: Microbiology 09/16/17 12:19 Foot, Right Gram Stain - Final 09/16/17 12:19 Foot, Right Surgical Culture - Preliminary Proteus mirabilis 09/15/17 17:20 Peripheral/Iv Start Blood Culture - Preliminary No Growth After 2 Days 09/15/17 17:20 Peripheral/Iv Start Blood Culture - Preliminary No Growth After 2 Days Assessment and Plan Assessment and Plan: Assessment Left foot abscess, acute Diabetic foot ulceration with cellulitis, acute Uncontrolled diabetes mellitus Diabetic peripheral neuropathy N/V History of osteomyelitis to left foot - 02/2017 Plan 09/18/17: POD #2 I&D performed with wound vac placement on 09/16/[address] Estes. Anticipate changing wound vac either today or tomorrow with discharge in the near future. Culture revealing Proteus mirabilis - pansensitive. Discussed with Dr. Saini who recommended Cefazolin 2g IV Q8H x 6 weeks or Rocephin 2 gm IV daily x 6 weeks. PICC placed 09/17/17. Plan for patient to discharge home with home health. Continue morphine and Percocet as needed for pain. Wound care per Dr. Estes. Blood sugars remain elevated. Novolog 2 units TID with meals and increase evening Lantus to 15 units (previously 14) units added 09/17/17. Will increase meal time Novolog to 4 units TID. Continue Lantus 15 units QHS. Continue to monitor blood sugars closely. Will continue home metformin and glimepiride. Sliding scale insulin as indicated. Prior diarrhea resolved. Monitor closely for constipation given opioid pain control. Continue probiotics started 09/15/17 and bowel motivation. Recheck labs in AM to monitor blood counts, electrolytes and renal function. DVT Prophylaxis: SCD's GI Prophylaxis: Protonix Resuscitation Status: Full Code - Time spent with patient Time with patient PN: 30 minutes - Physician Narrative Physician: Nelson Hurley MD Narrative: Date: 09/18/17 Time: 1425 Have independently interviewed and examined pt. Chart reviewed. Case discussed with CM and my PA. Care plan developed with my supervision; agree with above. Doing well overall except frustrated with discharge. Wound vac removed this morning and no one back to put on his home vac. Pain controlled. No nausea or vomiting. Eating well. Bowels stable. Breathing well. No f/c. Lungs: clear CV: regular AB: soft nt MSE: awake alert appropriate Plan: Medically stable for discharge to home. ID recommend ceftriaxone daily - will start today. Continue with wound vac and wound care as outlined by Dr Estes. F/U with Dr Avila. See orders for details. Hospital Course Summary Disclaimer: The visit summary below is not to be considered part of the above Progress Note. Hospital Course: 09/15/17 Patient admitted to inpatient status under the care of Dr. Hurley. Patient was hospitalized at [facility] in [place], [place] from 09/10/17-, prior to being transferred to [facility]. MRI on 09/15/17 concerning for abscess to left foot without evidence of osteomyelitis. Treatment with Daptomycin IV from 09/10/17-09/15/17 without improvement. Ortho consulted. Dr. Estes plans to take patient to the OR tomorrow, 09/16/17 for I&D of the abscess. Patient to be NPO after midnight. Monitor closely on telemetry. Prior wound cultures revealed sensitivity to vancomycin. Initiate vancomycin for empiric antimicrobial coverage while awaiting cultures from I&D. Pharmacy to manage. Will consult Dr. Saini (infectious disease) for treatment recommendations and durations. Wound care per Dr. Estes and team. Uncontrolled hyperglycemia with known diabetes. Will continue home metformin and glimepiride. While at [facility], he was started on Levemir 14 units QHS. Sliding scale insulin as indicated. Monitor blood sugars closely. Will hold on Levemir at this time given NPO status. Zofran for nausea/vomiting. Morphine PRN pain. Patient reports frequent diarrhea stools since starting antibiotics. Will obtain stool culture. Initiate probiotics with antibiotics. Hydration with NS 125cc/hr. Upon discharge, patient's care will be returned to his PCP, Dr. Avila. Prior to discharge, patient is open to additional counseling and education regarding his diabetes and how to achieve better control. Patient requests to be a FULL CODE. 09/16/17 Op DAY: Incision and drainage diabetic foot ulcer (Left) Patient to go to OR today for I&D with possible wound vac placement with Dr. Estes. Tolerated surgery well - wound vac placed. He was seen by Dr. Saini this morning - awaiting her recommendations regarding treatment. Will continue vancomycin for empiric treatment. Dr aSini added cefazolin 2 grams IV q 8 hours. Blood sugars remain elevated. Will continue home metformin and glimepiride. While at [facility], he was started on Levemir 14 units QHS. Will star Levemir at this evening. Zofran for nausea/vomiting. Morphine PRN pain. Patient reports frequent diarrhea stools since starting antibiotics. Will obtain stool culture. Probiotics started 09/15/17. Continue hydration with NS 125cc/hr pre op. Decreased to 75cc/hr after surgery. 09/17/17 POD #1 I&D performed with wound vac placement on 09/16/[address] Estes. Some increased pain following surgery. Continue morphine and Percocet as needed. History of chronic pain which may make pain control difficult. Diet advanced last night and tolerating well. Given good oral intake, will discontinue IV fluids. Culture revealing Proteus mirabilis with sensitivities pending. Dr. Saini recommended narrowing antibiotics to Cefazolin 2g IV Q8H and anticipates another 6 weeks of IV antibiotics will be needed. Recommends IV daptomycin 6mg/kg IV daily or continue with Ancef 2gm IV Q8H. Given expected prolonged treatment, will have PICC line placed. Continue wound care per Dr. Estes and team. Blood sugars remain elevated. Will add Novolog 2 units TID with meals and increase evening Lantus to 15 units (previously 14) units, based on previous sliding scale needs. Will continue to monitor closely. Will continue home metformin and glimepiride. Prior diarrhea resolved. Monitor closely for constipation given opioid pain control. Continue probiotics started 09/15/17 and bowel motivation. Plan 09/18/17: POD #2 I&D performed with wound vac placement on 09/16/[address] Estes. Anticipate changing wound vac either today or tomorrow with discharge in the near future. Culture revealing Proteus mirabilis - pansensitive. Discussed with Dr. Saini who recommended Cefazolin 2g IV Q8H x 6 weeks or Rocephin 2 gm IV daily x 6 weeks. PICC placed 09/17/17. Plan for patient to discharge home with home health. Continue morphine and Percocet as needed for pain. Wound care per Dr. Estes. Blood sugars remain elevated. Novolog 2 units TID with meals and increase evening Lantus to 15 units (previously 14) units added 09/17/17. Will increase meal time Novolog to 4 units TID. Continue Lantus 15 units QHS. Continue to monitor blood sugars closely. Will continue home metformin and glimepiride. Sliding scale insulin as indicated. Prior diarrhea resolved. Monitor closely for constipation given opioid pain control. Continue probiotics started 09/15/17 and bowel motivation. Recheck labs in AM to monitor blood counts, electrolytes and renal function.
[2017-09-18] MEDS: GABAPENTIN 600 MG TABLET PO SCH (09:12)
[2017-09-18] MEDS: INSULIN ASPART 100unit/ml INJECTION SQ SCH ×3 (09:12→13:41)
[2017-09-18] MEDS: SENNA + DOCUSATE TABLET PO SCH (09:13)
[2017-09-18] MEDS: GLIMEPIRIDE 2 MG TABLET PO SCH (09:13)
[2017-09-18] MEDS: LACTOBACILLUS (15B cfu) CAPSULE PO SCH ×2 (09:13→13:40)
[2017-09-18] MEDS: METFORMIN 1,000 MG TABLET PO SCH (09:13)
[2017-09-18] MEDS: POLYETHYL GLYCOL 3350 17gm PACKET PO SCH (09:13)
--- NOTE | 2017-09-18 09:16 | Orthopedic Progress Note ---
Date: Date: 09/18/17 Time: 909 Subjective/Severity of Illness: Mr. Aragon is lying in bed this morning when we visit. Patient states he did not sleep well last night due to frequent interruptions. Continues to be on Percocet and Morphine prn for pain. Orthopedic Exam Vital signs: Temperature 97.3 F 09/17/17 04:00 Pulse Rate 86 09/17/17 11:42 Respiratory Rate 18 09/17/17 11:42 Blood Pressure 135/81 09/17/17 11:42 Pulse Oximetry 97 09/17/17 11:42 - Constitutional General Appearance: Present: alert, cooperative, no acute distress - Respiratory Exam Present: non-labored - Cardiovascular Exam Present: pedal pulses intact - Extremities Exam Present: no edema, full ROM, pulses intact - Dressing Dressing: other (Wound vac functioning well with minimal output. Wound vac removed, slough tissued debridement with sharp currette 100% of both wounds by Dr. Estes. Covered with gauze. ) - Lymphatic Lymphatic: Absent: lymphedema - Neurological Exam Present: no deficits - Psychiatric Exam Present: alert, normal affect - Labs Result Diagrams: 09/18/17 04:23 09/18/17 04:23 Abnormal lab results 09/18/17 09/18/17 Range/Units 04:23 04:23 RBC 4.34 L (4.50-5.90) M/MM3 Hct 39.2 L (41-53) % Eos % (Auto) 5.2 H (0-4) % Creatinine 0.6 L (0.8-1.5) mg/dL Glucose 164 H (75-110) MG/DL H & H 09/15/17 09/17/17 09/18/17 Range/Units 15:10 04:17 04:23 Hgb 17.3 14.7 D 13.7 (13.5-17.5) GM/DL Hct 48.3 41.9 D 39.2 L (41-53) % Orthopedic Assessment and Plan (1) Ulcer of left foot due to type 2 diabetes mellitus Status: Acute Assessment and Plan: Will consult wound clinic for wound vac changes. If patient is to stay the weekend will switch to veraflow. PICC line in place- Dr. Saini managing antibiotic recommendations. Pt may be WBAT on the heel while wearing a post op shoe. Hospital Course Summary Disclaimer: The visit summary below is not to be considered part of the above Progress Note. Hospital Course: 09/15/17 Patient admitted to inpatient status under the care of Dr. Hurley. Patient was hospitalized at [facility] in [place], [place] from 09/10/17-, prior to being transferred to [facility]. MRI on 09/15/17 concerning for abscess to left foot without evidence of osteomyelitis. Treatment with Daptomycin IV from 09/10/17-09/15/17 without improvement. Ortho consulted. Dr. Estes plans to take patient to the OR tomorrow, 09/16/17 for I&D of the abscess. Patient to be NPO after midnight. Monitor closely on telemetry. Prior wound cultures revealed sensitivity to vancomycin. Initiate vancomycin for empiric antimicrobial coverage while awaiting cultures from I&D. Pharmacy to manage. Will consult Dr. Saini (infectious disease) for treatment recommendations and durations. Wound care per Dr. Estes and team. Uncontrolled hyperglycemia with known diabetes. Will continue home metformin and glimepiride. While at [facility], he was started on Levemir 14 units QHS. Sliding scale insulin as indicated. Monitor blood sugars closely. Will hold on Levemir at this time given NPO status. Zofran for nausea/vomiting. Morphine PRN pain. Patient reports frequent diarrhea stools since starting antibiotics. Will obtain stool culture. Initiate probiotics with antibiotics. Hydration with NS 125cc/hr. Upon discharge, patient's care will be returned to his PCP, Dr. Avila. Prior to discharge, patient is open to additional counseling and education regarding his diabetes and how to achieve better control. Patient requests to be a FULL CODE. 09/16/17 Op DAY: Incision and drainage diabetic foot ulcer (Left) Patient to go to OR today for I&D with possible wound vac placement with Dr. Estes. Tolerated surgery well - wound vac placed. He was seen by Dr. Saini this morning - awaiting her recommendations regarding treatment. Will continue vancomycin for empiric treatment. Dr Saini added cefazolin 2 grams IV q 8 hours. Blood sugars remain elevated. Will continue home metformin and glimepiride. While at [facility], he was started on Levemir 14 units QHS. Will star Levemir at this evening. Zofran for nausea/vomiting. Morphine PRN pain. Patient reports frequent diarrhea stools since starting antibiotics. Will obtain stool culture. Probiotics started 09/15/17. Continue hydration with NS 125cc/hr pre op. Decreased to 75cc/hr after surgery. 09/17/17 POD #1 I&D performed with wound vac placement on 09/16/[address] Estes. Some increased pain following surgery. Continue morphine and Percocet as needed. History of chronic pain which may make pain control difficult. Diet advanced last night and tolerating well. Given good oral intake, will discontinue IV fluids. Culture revealing Proteus mirabilis with sensitivities pending. Dr. Saini recommended narrowing antibiotics to Cefazolin 2g IV Q8H and anticipates another 6 weeks of IV antibiotics will be needed. Recommends IV daptomycin 6mg/kg IV daily or continue with Ancef 2gm IV Q8H. Given expected prolonged treatment, will have PICC line placed. Continue wound care per Dr. Estes and team. Blood sugars remain elevated. Will add Novolog 2 units TID with meals and increase evening Lantus to 15 units (previously 14) units, based on previous sliding scale needs. Will continue to monitor closely. Will continue home metformin and glimepiride. Prior diarrhea resolved. Monitor closely for constipation given opioid pain control. Continue probiotics started 09/15/17 and bowel motivation.
--- NOTE | 2017-09-18 10:58 | Discharge Summary ---
Discharge Information Date of admission: 09/15/17 17:41 Anticipated date of discharge: 09/18/17 Attending Physician: Nelson Hurley MD Primary care physician: Dr. Avila Consults: Physician Consult: Ezekiel Estes - ortho Physician Consult: Bianca Saini - infectious disease Radio Presenter Consult W[facility] Consult Discharge diagnosis Diabetic foot ulceration with cellulitis left foot, acute Left foot abscess, acute S/P I&D with wound vac placement on 09/16/[address] Estes Associated conditions and complications Uncontrolled diabetes mellitus Diabetic peripheral neuropathy Nausea and vomiting - resolved. History of osteomyelitis to left foot - 02/2017 - Procedures Procedures: DATE 09/16/2017 PREOPERATIVE DIAGNOSIS Left foot diabetic foot ulcers with abscess. POSTOPERATIVE DIAGNOSIS Left foot diabetic foot ulcers with abscess. PROCEDURE Left foot surgical debridement, evacuation of abscess and placement of wound vac. SURGEON Ezekiel Estes MD ANESTHESIA General. COMPLICATIONS None. EBL AND FLUIDS Please see Anesthetic Record. DESCRIPTION OF PROCEDURE Mr. Aragon and his left foot were identified and marked in the preoperative holding area. He was brought back to the operating suite and placed supine on the operating table. He was placed under general anesthesia. The left lower extremity was prepped and draped with Betadine scrub. Time-out was performed. Tourniquet was not used during the surgery. I began by measuring his plantar diabetic foot ulcer which measured 1.1 x 1.0 x 1.1 deep. It had surrounding callus around the skin. Within the wound itself there was active drainage of pustulous type material. He had a second area of concern which was not open, but there was discoloration over the anteromedial aspect over the metatarsal head with fluctuance. I removed skin over this fluctuance and there was a large ulceration measuring 0.7 x 0.8 with necrotic subcutaneous tissue 100% within the base. I continued to debride skin from between the two ulcerations and then sharpy debrided all of the necrotic tissue from the anterior ulceration. There was abundant pustulous material within the subcutaneous tissue and after complete debridement it tunneled 360 degrees from the ulceration itself over 1 cm. Sharp dissection was then proceeded on the plantar wound. Measurements after complete debridement sharply were 1.5 cm x 1.5 cm x 1.3 cm deep. According to the MRI he had an abscess lateral to the metatarsal, so with a pair of Mallory's I bluntly dissected to this area to ensure that we evacuated this abscess. I then proceeded to thoroughly irrigate both ulcerations with normal saline using a total of 3 liters. I did this with cysto tubing. After this both wounds again were evaluated to ensure no necrotic remained, which it did not. There was no exposed tendon in either wound. I then placed a wound vac to both wounds set to 125 mmHg continuous suction. They did achieve a good seal. The drapes were then removed. He was allowed to awaken from general anesthesia and taken to the recovery room under the care of Anesthesia. He tolerated the procedure well. There were no complications. - Laboratory Labs: 09/18/17 09/15/17 09/16/17 09/17/17 09/18/17 WBC 10.7 8.7 6.4 Hgb 17.3 14.7 13.7 Plt 165 172 189 Na 137 139 142 142 K 4.4 3.9 3.8 3.8 BUN 16.0 11.0 10.0 13.0 SCr 0.6 0.6 0.7 0.6 Glu 207 171 162 164 Labs from [facility] on 09/14/17: WBC 8.0 Hgb 16.4 Na 132 K 4.5 BUN 39 SCr 0.8 Glu 203 - Microbiology Microbiology 09/16/17 12:19 Foot, Right Gram Stain - Final 09/16/17 12:19 Foot, Right Surgical Culture - Preliminary Proteus mirabilis - PANSENSITIVE 09/15/17 17:20 Peripheral/Iv Start Blood Culture - Preliminary No Growth After 2 Days 09/15/17 17:20 Peripheral/Iv Start Blood Culture - Preliminary No Growth After 2 Days Wound Culture from [facility]: Staphylococcus aureus - moderate amount SENSITIVE to DAPTOMYCIN Streptococcus agalactiae - large amount Sensitivities: Ceftriaxone S Ciprofloxacin I Clindamycin R Erythromycin R Gentamicin S Levofloxacin S Linezolid S Oxacillin S Penicillin S Rifampin S Tetracycline R Trimethoprim/Sulfa S Vancomycin S - Radiology Radiology: Date of Exam: 09/15/17 Type of Exam(s): XR chest 1V Reason for Exam(s): Sepsis FINDINGS: The lungs are clear. There is no abnormal airspace opacity, pleural effusion or pneumothorax identified. The heart size, pulmonary vasculature and mediastinum are within normal limits. No significant skeletal abnormality is seen. IMPRESSION: No acute cardiopulmonary abnormality. MRI Left Foot - 09/15/17: 1. There is subcutaneous edema both dorsally as well as around the region of the 1st metatarsal-phalangeal joint extending into the great toe and more proximal portions of the region of the 1st metatarsal though within the subcutaneous tissues. There is also some edema of the underlying musculature. There also appears to be a soft tissue defect along the plantar aspect of the medial portion of the 1st proximal phalanx. Packing material appears present. There is enhancement throughout these areas. Findings are most consistent with cellulitis/myositis. 2. There is a focus of fluid seen within the soft tissues lateral to the 1st metatarsal-phalangeal region extending along the proximal 1st phalanx, as above. There is some partial surrounding enhancement and this may represent developing abscess. This measures approximately 2.0x1.8x0.9 cm. This is along the lateral aspect of the 1st metatarsal-phalangeal joint and proximal phalanx. 3. Minimal fluid within the tendon sheath of the flexor hallucis longus distally. Tendons throughout appear within normal limits. There is also some minimal fluid at the 1st and 2nd metatarsophalangeal joints. 4. There does not appear to be significant bone marrow edema or abnormal enhancement of the bone throughout. No evidence to suggest osteomyelitis seen. Left Foot X-Ray - 09/10/17: Normal left foot. History of Present Illness HPI: Mundo Aragon is a pleasant 41-year-old male patient of Dr. Radha Avila. He reports that in February 2017 he developed an ulcer to his left foot along the 1st metatarsal which progressed into osteomyelitis. He was treated with a 3- month course of vancomycin which was completed at the end of May. Throughout his treatment course, he has been following with Cuca Galdamez APRN, as an outpatient for wound care including weekly dressing changes and wound debridement. On 09/10/17, he was seen in clinic for his weekly dressing change and complained of increasing pain along his left great toe extending into his left foot with swelling and erythema. He reports that the pain and swelling came on suddenly on 09/09/17. He also reported increased fatigue and feeling "sluggish". Evaluation of his ulceration revealed copious serous drainage with a foul odor. He has a known history of diabetes mellitus as well as diabetic peripheral neuropathy. Labs were obtained at that time and revealed elevated lactic acid of 3.7 with elevated sed rate of 48 and glucose of 311. WBC was normal at 9.0. Due to his left foot cellulitis and foot ulceration with uncontrolled diabetes, he was admitted to [facility] in [place]. Daptomycin IV was initiated at the time of admission. Throughout his admission , blood counts remained stable. On 09/14, he was noted to have some hyponatremia (Na 132) and persistently had hyperglycemia with glucose averaging 200. Given his hyperglycemia, he was continued on his home glimepiride 2mg orally BID and metformin 1000mg orally BID with the initiation of Lantus 14 units at night with noted improvement in blood sugars. Initial CRP was elevated at 32 and trended down to 25. Lactate improved from 3.7 on admission to 1.6. Wound cultures from the ulcer were obtained and revealed moderate amount of staph aureus sensitive to daptomycin and large amount of streptococcus agalactiae. Sensitivities revealed resistance to tetracyclines, clindamycin and ciprofloxacin. With the initiation of the daptomycin, he reports increased nausea with frequent vomiting and watery diarrhea. He continues to complain of nausea with occasional vomiting and anorexia. Due to continued pain with minimal clinical improvement, MRI fo the foot was obtained today, 09/15/17, and findings were concerning for persistent cellulitis/myositis as well as developing abscess along the lateral 1st metatarsal-phalangeal region extending along the proximal 1st phalanx. No evidence of osteomyelitis was noted. Due to the development of the abscess, Dr. Hurley was contacted and he was accepted to [facility] for inpatient care for further evaluation, continued IV antibiotic treatment and surgical consultation with ortho for evaluation with anticipated I&D. His length of stay is expected to exceed more than 2 over nights. On exam, he is seen while resting in bed, with his family at the bedside. Extensive review of his prior medical records, labs and imaging in addition to discussion of his care plan with ortho was completed. He is noted to be febrile (T 100.4) and tachycardic (HR 104) on admission. He complains of nausea and overall, not feeling well. He reports that he occasionally checks his blood sugars and they typically run around 300 at home. He is open to learning how to better control his diabetes and receiving more diabetic education. For complete details of the H&P refer to that document. Objective Vital signs: Temperature 96.1 F L 09/18/17 08:27 Pulse Rate 68 09/18/17 08:27 Respiratory Rate 16 09/18/17 08:27 Blood Pressure 145/78 H 09/18/17 08:27 Pulse Oximetry 98 09/18/17 08:27 Height/Weight/BMI: Height 6 ft 4 in Weight 244 lb 7.882 oz Body Mass Index 29.5 Hospital Course This is a general summary of the patient's hospital course. For more details refer to the complete medical record. Hospital course: 09/15/17 Patient admitted to inpatient status under the care of Dr. Hurley. Dr. sEtes, ortho, consulted with plan to take patient to OR on 09/16/17 for I&D of abscess and possible wound vac placement. Patient was hospitalized at [facility] in [place], [place] from 09/10/17-, prior to being transferred to [facility]. MRI on 09/15/17 concerning for abscess to left foot without evidence of osteomyelitis. Treatment with Daptomycin IV from 09/10/17-09/15/17 without improvement. Prior wound cultures revealed sensitivity to vancomycin. Initiate vancomycin for empiric antimicrobial coverage while awaiting cultures from I&D. Pharmacy to manage. Will consult Dr. Saini (infectious disease) for treatment recommendations and durations. Wound care per Dr. Estes and team. Uncontrolled hyperglycemia with known diabetes. Will continue home metformin and glimepiride. While at [facility], he was started on Levemir 14 units QHS. Sliding scale insulin as indicated. Monitor blood sugars closely. Will hold on Levemir at this time given NPO status. Zofran for nausea/vomiting. Morphine PRN pain. Hydration with NS 125cc/hr. 09/16/17 Op DAY: Incision and drainage diabetic foot ulcer (Left) Underwent I&D with wound vac placement with Dr. Estes. Tolerated procedure well. He was seen by Dr. Saini this morning who recommended discontinuation of vancomycin and starting cefazolin 2g IV Q8H for coverage of suspected pathogens. Blood sugars remain elevated. Levemir 14 units QHS originally initiated at [facility] will be started today at bedtime. Diet advanced following surgery and tolerated well. IV fluids decreased to 75cc /hr for gentle hydration. Zofran for nausea/vomiting. Morphine PRN pain. 09/17/17 POD #1 Some increased pain following surgery. Continue morphine and Percocet as needed. History of chronic pain which may make pain control difficult. Given good oral intake, will discontinue IV fluids. Culture revealing Proteus mirabilis with sensitivities pending. Continued Cefazolin 2g IV Q8H and anticipate another 6 weeks of IV antibiotics will be needed. Given expected prolonged treatment, will have PICC line placed. Continue wound care per Dr. Estes and team. Blood sugars remain elevated. Will add NovoLog 2 units TID with meals and increase evening Lantus to 15 units (previously 14) units, based on previous sliding scale needs. Will continue to monitor closely. Plan 09/18/17: POD #2 Plan to change wound vac today with discharge this afternoon. Case management working on discharge planning. Culture revealing Proteus mirabilis - pansensitive. Discussed with Dr. Saini who recommended Cefazolin 2g IV Q8H x 6 weeks or Rocephin 2 gm IV daily x 6 weeks. Due to cost, patient elected for Rocephin 2g IV daily x 6 weeks. Will continue pain control orally. Blood sugars remain elevated. Will increase meal time NovoLog to 4 units TID. Continue Lantus 15 units QHS. Continue to monitor blood sugars closely. Discharge plans discussed with patient. Patient to follow up with PCP in 1 week and with wound care on as directed for wound care management. Follow up with Dr. Estes on 09/23/17. See orders for details. Time spent with patient: greater than 35 minutes Resuscitation Status: Full Code Discharge Plan - Discharge Disposition Disposition: Discharged Home, Self-Care *Condition: Stable Reason For Visit (Visit label in EMR): Cellulitis and abscess of foot - Discharge Medications *Discharge Medications: New Oxycodone/Apap 7.5/325 [Percocet 7.5/325] 1 tab PO Q6H PRN #20 tab PRN Reason: Pain Acidoph/L.bulg/Bif.b/S.thermop [Bacid Caplet] 2 cap PO TIDWM #180 tab Ceftriaxone [Rocephin] 2 gm IV DAILY #42 vial Insulin Aspart [NovoLOG] 4 unit SQ TIDWM #5 vial Insulin Glargine,Hum.rec.anlog [Lantus] 15 unit SQ HS #5 vial PEG 3350 17gm PACKET [Miralax] 17 gm PO DAILY packet Acetaminophen [Tylenol] 650 mg PO Q5H PRN tab PRN Reason: Discomfort Pantoprazole Tab [Protonix Tab] 40 mg PO ACB #30 tab Continue Glimepiride [Amaryl] 2 mg PO BID Gabapentin [Neurontin] 600 mg PO BID Metformin [Glucophage] 1 tab PO BIDWM - Discharge Packet/Instructions *Diet: Carb controlled 2000 kcal. *Activity: As tolerated. *Pain Management/Treatment: Percocet 7.5/325 - 1 tab every 6 hours as needed for pain. *Wound Care: per wound team Additional Instructions: Take medications as directed. Follow up with Dr. Avila on Thursday09/21/17. Call to schedule appointment. Monitor blood sugars closely at home. We have started Novolog insulin 4 units three times a day with meals. Check your blood sugar 2 hours after eating to make sure your sugars aren't too low. We also started lantus 15 units to be taken every night around 1999. You will need Rocephin 2g IV every day for 6 weeks. Any questions or concerns, feel free to contact the hospitalist service, Dr. Estes or Dr. Baxa. *Expected Signs/Symptoms: Gradual improvement. *Notify Physician if: fever, redness, swelling, increasing pain, issues with wound vac, other complaints or concerns. *During Business Hours Contact: Dr. Estes at [phone] *After Business Hours Contact: the on-call physician for Dr. Estes at [phone] or the emergency department. *Pending Lab/Results: No Pending Lab - Referrals/Follow Up *Referrals/Follow Up: Ezekiel Estes MD [Physician] - 09/23/17 11:30 am (Follow up in Wound Clinic at [address] Estes) Radha Avila MD [Physician] - 3 Days (Follow up in office on 09/21/17 - clinic will call you to schedule appointment.) - Patient Handouts Patient Handouts: Foot Care for People with Diabetes (GEN), Diabetic Foot Ulcers (GEN) - Dismissal Complete Discharge Instructions are:: Complete Physician Narrative - Narrative Physician: Nelson Hurley MD Attestation Narrative: Date: 09/18/17 Time: 1540 Have independently interviewed and examined patient prior to discharge. See my progress note from today for details. Medically stable for discharge to home.
[2017-09-18] MEDS ORDERED: DEXAMETHASONE 4 MG/ML INJECTION ONE (11:24)
[2017-09-18] MEDS ORDERED: MIDAZOLAM 2mg/2ml INJECTION ONE (11:40)
[2017-09-18] MEDS ORDERED: PROPOFOL 500 MG/50 ML VIAL ONE (12:19)
[2017-09-18 12:49] VITALS: BP 150/73; PULSE 67; TEMP 96.3
[2017-09-18] MEDS ORDERED: CEFTRIAXONE 2 GM in NS 100 ML IV ONE (14:00)
--- NOTE | 2017-09-18 15:39 | Wound Care Progress Note ---
Wound Center Progress Note: Pt being dismissed, at this time home wound vac placed and instruction on home vac use given. [facility] will change vac on Thursday, Thursday and pt will come to wound clinic on Thursday to see wound clinic and Dr Estes. Thursday wound clinic will change wound vac. Educated pt on need to keep BS < 150 and to increase protein in take.
== END 2017-09-18 15:34 | disposition home or self-care (01) | DRG 571 ==
LOC: SRG 17:41
PROVIDERS: ADMIT Hospitalist; ATTEND Hospitalist